=== PATIENT | female | born 1995 | race Hispanic/Latino ===

== ENCOUNTER 2021-10-16 20:13 | Emergency (ER) | payer SELFPAY ==
[~2021-10-16] VITALS: Ht 162.6 cm; Wt 131.5 kg
== END 2021-10-16 20:31 | disposition home or self-care (01) ==
LOC: ER 20:24
DX: J03.90 Acute tonsillitis, unspecified (principal); F41.9 Anxiety disorder, unspecified
CPT/HCPCS: 99282